=== PATIENT | male | born 2005 | race Caucasian/White ===

== ENCOUNTER 2025-07-28 03:13 | Emergency (ER) | payer OTHER ==
[~2025-07-28] VITALS: Ht 185.4 cm; Wt 86.4 kg
[2025-07-28 03:20] VITALS: BP 155/101; PULSE 73; RESP 22; TEMP 97.905272; O2SAT 96
[2025-07-28] MEDS: ONDANSETRON HCL 4 MG/2 ML VIAL IVP ONE (03:34)
== END 2025-07-28 05:45 | disposition home or self-care (01) ==
LOC: EMS 03:13
DX: M24.411 Recurrent dislocation, right shoulder (principal)
CPT/HCPCS: 99284; 23650; 96374; 96375; 73020; 73030; J1171; J2405